=== PATIENT | male | born 1975 | race Caucasian/White ===

== ENCOUNTER 2024-12-07 15:32 | Outpatient (CLI) | payer OTHER, SELFPAY ==
--- NOTE | ~2024-12-07 | CT_ITS ---
Noncontrast CT scan of the right shoulder Clinical history: Pain TECHNIQUE: Axial noncontrast imaging of the right shoulder was performed. Sagittal and coronal reform atted images were constructed. Dose reduction technique was used on this scan by utilizing automated exposure control and iterative reconstruction technique. The dose-length product (DLP) was 410.94 mGy -cm. Findings: No acute fracture or dislocation seen. There is advanced degenerative changes glenohumeral joint, with joint space narrowing and prominent bony productive change of the humerus, with large inf eromedial humeral head osteophyte in particular. There is moderate AC joint degenerative change. No d efinite glenohumeral joint effusion seen. Visualized musculature about the right shoulder is unremarkable. No muscle atrophy evident. No soft t issue mass or fluid collection seen. IMPRESSION: Advanced osteoarthritis of the glenohumeral joint, as detailed above. Moderate AC joint degenerative change. No fracture or dislocation seen. Exam suboptimal due to [id number] on the reconstructed sagittal and coronal images, which incomple tely include the humeral head and glenohumeral joint. Reviewed, dictated and finalized at location . IMPRESSION: Advanced osteoarthritis of the glenohumeral joint, as detailed above. Moderate AC joint degenerative change. No fracture or dislocation seen. Exam suboptimal due to [id number] on the reconstructed sagittal and coronal images, which incompletely include the humeral head and glenohumeral joint.
--- OUTSIDE RECORDS SUMMARY | 2024-12-07 15:38 | XMS_ITS | Clinical Summary ---
Author Organization [facility] Address [address] [place] [address] Care Team Providers Care Abrasive Mixer Name Role Phone Huang Kovacs MD Primary Care Provider Source Comments [facility],non-owned Affiliates and Associated Physician Practices is amultiple site organization consisting of ambulatory clinics and hospital sitesin [place], [place], [place] and [place]. This disclosure is being madepursuant to the Care Everywhere program and may not contain all information available regarding this patient. Last updated 18.[facility] Allergies No known active allergies Immunizations Immunization Administration Dates Next Due TDAP (7yrs+) 01/04/2018 Social History Tobacco Use Types Packs/Day Years Used Date Smoking Tobacco: Never Assessed Sex and Gender Information Value Date Recorded Sex Assigned at Not on file Legal Sex Male 3:02 PM CDT Gender Identity Not on file Sexual Orientation Not on file Plan of Treatment Health Maintenance Due Date Last Done Comments COLOGUARD (AGES 45-75) - COL ON CA SCREENING 1976 COLON MONITORING 1976 COLONOSCOPY - COLON CA SCREENING 1976 CT COLONOGRAPHY - COLON CA SCREENING 1976 Colorectal Cancer Screening 1976 FIT - COLON CA SCREENING 1976 FLEX SIG - COLON CA SCREENING 1976 LIPID TESTING 1976 HIV SCREENING 02/12/1991 HEPATITIS C SCREENING 02/08/1994 HEPATITIS B VACCINE (1 of 3 - 19+ 3-dose series) 02/12/1995 COVID-19 VACCINE (2023-2 5 season) 2024 DEPRESSION SCREENING 07/25/2024 INFLUENZA VACCINE (Season Ended) 2025 ZOSTER VACCINE (1 of 2) 02/12/2026 DTAP/TDAP/TD VACCINES (2 - T d or Tdap) 01/05/2028 01/04/2018 HIB VACCINE Aged Out No longer eligi ble based on patient's age to complete this topic HPV VACCINE Aged Out No longer eligi ble based on patient's age to complete this topic MENINGOCOCCAL (Group B) VACC INE SHARED DECISION-MAKING Aged Out No longer eligibl e based on patient's age to complete this topic MENINGOCOCCAL GROUPS A/C/Y/W VACCINE Aged Out No longer eligible b ased on patient's age to complete this topic PNEUMOCOCCAL VACCINE Aged Out No long er eligible based on patient's age to complete this topic Insurance Care Teams Abrasive Mixer Relationship Specialty Start Date End Date Huang Kovacs MD [address] [place] [id number] PCP - General Family Medicine 01/04/18
== END 2024-12-07 15:33 | disposition home or self-care (01) ==
PROVIDERS: PCP Emergency Medicine; Visit Provider Orthopaedic Surgery
DX: M19.011 Primary osteoarthritis, right shoulder (principal)
CPT/HCPCS: 73200

== ENCOUNTER 2025-07-11 02:29 | Day surgery (SDC) | payer OTHER, SELFPAY ==
[2025-06-25 13:14] VITALS: BMI 31.2
--- OUTSIDE RECORDS SUMMARY | 2025-07-11 02:33 | XMS_ITS | Continuity of Care Document ---
Author Organization [place] [facility], [facility] [place] Address [address] [place] [address] Care Team Providers Care Monotype Keyboard Operator Name Role Phone SHAUNA HERR Primary Care Provider SHAUNA HERR Referring Provider [phone] Assessment Encounter Date Assessment Date Assessment LastModified by Organization Details LastModified Time 05/06/2025 05/06/2025 HPI: 50-year-old male presents today for a preop evaluation for right anatomic total shoulder arthroplasty with . He has a history of shoulder arthritis. Treatment has included anti-inflammator ies, PT, and cortisone injections with minimal relief. 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 He is unable to even throw batting practice. He currently reports pain at 5/10. Medications: Meloxicam and Cetirizine Allergies : NKDA Medical Hx: None Surgical Hx: None Anesthesia Hx: None Tobacco Use: 4-5 Nicotine pouches a day. Stopped end of December. Medical Clearance: None ROS: Per patient questionnaire Physical Exam : General: Normal appearance. No acute distress. Inspection: No evidence of swelling, erythema, bruising or deformity. Palpation: Nontender to palpation ROM: Flexion: 150 Abduction: 50 ER: 30 IR: Back pocket Motor: 5/5 strength. Sensation: Sensation intact. Imaging: , CT reviewed demonstrating arthritis Assessment & Plan: We will proceed with anatomic total shoulder arthroplasty and an arthro surface ovo inlay. Risks included but are not limited to pain, stiffness, infection, injury to other structures including nerves or blood vessels, need for future surgery, and anesthesia complications. The goal of surgery is to improve symptoms but there is no guarantee of any results and it is possible the condition is worse after surgery. Patient agreed and would like to proceed. Surgery is planned for May 14 Discussed nicotine effects on healing. He states that he has discontinued all nicotine end of December Follow Up: 2 weeks postop. [email or web address] Not available 05/06/2025 19:06:31 Plan of Treatment Reminders Order Date Submit Date Provider Last Modified By Organization Details Last Modified Time Details Appointments Any 5 026 03:00PM Aly Jaquez MD Not available Not available Not available Lab None record ed. Referral None record ed. Procedures None record ed. Surgeries None record ed. Imaging None record ed. Medication Orders None record ed. Patient TargetsNo targets recorded. Patient InstructionsNo instructions recorded. Reason for Referral None Reported. Results Created Date Observation Date Name Description Value Unit Range Abnormal Flag Note LastModifiedBy Organization Detail LastModifiedTime 07/10/20 25 XR, shoul gloria, 2 or more view No observ ation record ed. raiza [facility] [place] [address], [place], [address], 07/10/2025 11:03:24 Result Notes None recorded. Problems Name Problem SNOMED Code Status Onset Date Resolution Date Notes Provider Name and Address Organization Details Recorded Time Pain of right shoulder joint 9513479085773 9100 Active 2024 KACIE Villanueva, [facility] 5 15:19:20 Inflammatio n of joint of right shoulder region Active 2024 Zamzam Lyles PA-C [address] [facility] [address], [place], [address] , [facility] 5 15:04:08 Problem Notes None recorded. Procedures Surgical History Date Name Laterality Status Provider Name and Address Organization Details Recorded Time 05/14/2025 Shoulder completed Negrita Blankenship [facility] 05/29/2025 10:04:49 Imaging Results None recorded. Procedure Notes None recorded. Medical Equipment None Reported. Allergies No known drug allergies Medications Name Sig Start Date Stop Date Status Note LastModified by Organization Details LastModified Time cyclobenzapri ne 10 mg tablet TAKE 1 TABLET 3 TIMES A DAY BY ORAL ROUTE NEEDED. active Not Available Not Available N ot Available hydrocodone 5 mg-acetaminop hen 325 mg tablet TAKE 1 TABLET BY MOUTH EVERY 6 HOURS NEEDED active Not Available Not Available No t Available meloxicam 15 mg tablet TAKE 1 TABLET BY MOUTH EVERY DAY active Not Available Not Available No t Available bupivacaine HCl 0.5 % (5 mg/mL) injection solution Take 20 mg by injection route. 2024 active Not Available Not Available Not Avai lable tramadol 50 mg tablet TAKE 1 TABLET BY MOUTH EVERY 6 HOURS NEEDED active Not Available Not Available No t Available Kenalog 10 mg/mL suspension for injection Take 10 mg by injection route. 2024 active [facility]: 0003- 0494- 20 Not Available Not Available Not Available gabapentin 100 mg capsule TAKE 1 CAPSULE BY MOUTH THREE TIMES A DAY NEEDED active Not Available Not Available No t Available Vitals Date Recorded Body height Body mass index (BMI) Body weight Pain severity - 0-10 verbal numeric rating [Score] - Reported Provider Name and Address Organization Details Last Updated DateTime 05/06/2025 190.5 cm 30 kg/m2 241025.17 g 5 KACIE Villanueva - [facility] [employer] [facility] 05/06/2025 15:19:31 Social History Question Answer Notes LastModified by Organizat ion Details LastModified Time What Was The Date Of Your Most Recent Tobacco Screening? 07/10/2025 [email or web address] Information not available 07/10/2025 Sex: Unknown Functional Status None recorded. Mental Status None recorded. Family History Nothing Reported. Medical History No medical history recorded. Past Encounters Encounter ID Performer Location Encounter Start Date Encounter Closed Date Diagnosis/Indication Diagnosis SNOMED-CT Code Diagnosis ICD10 Code Diagnosis IMO Codes Diagnosis Note [id number] Aly Jaquez MD [facility] [address] [place] [address] 05/06/2025 15:16:00 05/06/2025 16:00:01 Pain of right shoulder joint 2290614422 0070365 M25.511 Inflammati on of joint of right shoulder region 7409109856 41970 M19.011 [id number] Health Concerns Section Related Observation LastModified by Organization Detai ls LastModified Time None Recorded Concern Status LastModified by Organization Details LastModified Time None Recorded Payers Encounter Date Sequence Insurance Name Policy Number Policy Edwards Covered Member ID Edwards Member ID Guarantor Name 05/06/2025 1 [facility] [id number] Lenard Chu [id number] Lenard Chu
--- OUTSIDE RECORDS SUMMARY | 2025-07-11 02:33 | XMS_ITS | Continuity of Care Document ---
Author Organization [place] [facility] [employer] [facility], [facility] [place] Address [address] [place] [address] Care Team Providers Care Helper/Driver Name Role Phone SHAUNA HERR Primary Care Provider SHAUNA HERR Referring Provider [phone] Assessment Encounter Date Assessment Date Assessment LastModified by Organization Details LastModified Time 05/29/2025 05/29/2025 50-year-old male presents for follow-up of his right shoulder status post a Arthro surface ovo motion TSA on 05/16/2025. He reports doing well, having no pain. He has been moving the arm according to the exercises on the sheet without any difficulty. He does have some muscle spasm in his biceps. Incision is clean dry intact without any signs of infection. He has no tenderness around the shoulder. He does have some swelling over the elbow and biceps area. He does report some subjective numbness and tingling in the fingers his shoulder appears to be doing well. The swelling is not unexpected and I would expect that to continue to resolve over time. In terms of numbness tingling, some that may be from the swelling, or residual affects from the nerve block. We will keep an eye on that and see how that progresses. We will give him a refill on his pain medications. 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 Follow up in 4 weeks for recheck. We will also put an order for PT at this point. [email or web address] Not available 05/29/2025 10:26:43 Plan of Treatment Reminders Order Date Submit Date Provider Last Modified By Organization Details Last Modified Time Details Appointments Any 5 2025 03:00P M Aly Jaquez MD Not available Not available Not available Lab None recorded. Referral physical therapist referral - Please contact pt to schedule for R shoulder post op, TSA. Dr. Phillips protocol found on [email or web address] 2024 [facility], [address], [place], [address], 06/11/2025 08:27:54 Procedures None recorded. Surgeries None recorded. Imaging None recorded. Medication Orders tramadol 50 mg tablet 2024 [facility][id number], [address] [place], [address], 05/29/2025 10:53:45 hydrocodo ne 5 mg-acetam inophen 325 mg tablet 2024 [id number] [address] [place], [address], 05/29/2025 10:53:45 cyclobenz aprine 10 mg tablet [address]/Pharmacy #[id number], [address] [place], [address], 06/03/2025 14:53:25 Patient TargetsNo targets recorded. Patient InstructionsNo instructions recorded. Reason for Referral Physical Therapist Referral for Pain of right shoulder joint R shoulder/TSA post op Please contact pt to schedule for R shoulder post op, TSA. Dr. Phillips protocol found on [email or web address] Referring Physician: Aly Jaquez, Orthopedic Surgery, Encounter Date: 05/29/2025 Results Created Date Observation Date Name Description Value Unit Range Abnormal Flag Note LastModifiedBy Organization Detail LastModifiedTime 07/10/20 25 XR, shoul gloria, 2 or more view No observ ation record ed. andersonnatali [facility] [place] [address], [place], [address], 07/10/2025 11:03:24 Result Notes None recorded. Problems Name Problem SNOMED Code Status Onset Date Resolution Date Notes Provider Name and Address Organization Details Recorded Time Pain of right shoulder joint 1077929111931 9100 Active 2024 KACIE Villanueva null, [facility] 15:19:20 Inflammatio n of joint of right shoulder region Active 2024 Zamzam Lyles PA-C [address] [facility] [facility] [address], [place], [address], [employer] 15:04:08 Problem Notes None recorded. Procedures Surgical History Date Name Laterality Status Provider Name and Address Organization Details Recorded Time 05/14/2025 Shoulder completed [facility] 05/29/2025 10:04:49 Imaging Results None recorded. Procedure [...] 10 mg by injection route. 2024 active [facility]: 0003- 0494- 20 Not Available Not Available Not Available gabapentin 100 mg capsule TAKE 1 CAPSULE BY MOUTH THREE TIMES A DAY NEEDED active Not Available Not Available No t Available Vitals Date Recorded Body height Body mass index (BMI) Body weight Provider Name and Address Organization Details Last Updated DateTime 05/29/2025 190.5 cm 30 kg/m2 609560.17 g [facility] 05/29/2025 10:03:43 Social History Question Answer Notes LastModified by Organizat ion Details LastModified Time What Was The Date Of Your Most Recent Tobacco Screening? 07/10/2025 [email or web address] Information not available 07/10/2025 Sex: Unknown Functional Status None recorded. Mental Status None recorded. Family History Nothing Reported. Medical History No medical history recorded. Past Encounters Encounter ID Performer Location Encounter Start Date Encounter Closed Date Diagnosis/Indication Diagnosis SNOMED-CT Code Diagnosis ICD10 Code Diagnosis IMO Codes Diagnosis Note [id number] Aly Jaquez MD [facility] [place] [address] [place] [address] 05/06/2025 15:16:00 05/06/2025 16:00:01 Pain of right shoulder joint 5802858007 7993711 M25.511 Inflammati on of joint of right shoulder region 0023843106 09929 M19.011 06546526 [id number] Aly Jaquez MD [facility] [place] [address] [place] [address] 05/29/2025 09:57:26 05/29/2025 10:40:01 Pain of right shoulder joint 5903626774 1578128 M25.511 Inflammati on of joint of right shoulder region 3036175235 48792 M19.011 [id number] Health Concerns Section Related Observation LastModified by Organization Detai ls LastModified Time None Recorded Concern Status LastModified by Organization Details LastModified Time None Recorded Payers Encounter Date Sequence Insurance Name Policy Number Policy Edwards Covered Member ID Edwards Member ID Guarantor Name 05/29/2025 1 [facility] [id number] Lenard Chu [id number] Lenard Chu
--- OUTSIDE RECORDS SUMMARY | 2025-07-11 02:33 | XMS_ITS | Continuity of Care Document ---
Author Organization [place] [facility] [place] Address [address] [place] [address] Care Team Providers Care Salesforce Trainer Name Role Phone SHAUNA HERR Primary Care Provider [phone] SHAUNA HERR Referring Provider [phone] Assessment Encounter Date Assessment Date Assessment LastModified by Organization Details LastModified Time 07/10/2025 07/10/2025 HPI: 50 year old male presents today for postop follow-up after undergoing right arthro surface ovo motion anatomical total shoulder arthroplasty. He is approximately 8 weeks postop. Reports compliance with PT. 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 Currently rates pain 0/10, takes ibuprofen as needed. No concerns today Physical Exam: General: Normal appearance. No acute distress. Inspection: Incisions are well healed Palpation: Nontender with palpitation ROM: Full ROM Sensation: Sensation intact. Imaging: XR reviewed, demonstrating replacement in good position with no periprosthetic lucency or fracturing seen Assessment & Plan: He is doing well 8 weeks postop. Continue to work with PT on ROM and strengthening. Renewed PT Ordered, follow s postop protocol Precautions: Advance to routine ADL's as tolerated, no lifting greater than 2 lbs. Routine dental procedures should be delayed for 3 months unless there is an active infection. Work note provided. Follow Up: 6 weeks All questions were answered. Patient verbalized understanding of treatment plan [email or web address] Not available 07/10/2025 11:34:48 Plan of Treatment Reminders Order Date Submit Date Provider Last Modified By Organization Details Last Modified Time Details Appointments Any 5 2025 03:00P Michael Jaquez MD Not available Not available Not available Lab None recorded. Referral physical therapist referral - continuat ion of therapy for R shoulder for post op TSA 2024 025 [facility], [address], [place], [address], 07/10/2025 14:15:17 Procedures None recorded. Surgeries None recorded. Imaging XR, shoulder, 2 or more view 2024 025 raiza [facility] [place], [address], [place], [address], 07/10/2025 11:03:25 Medication Orders None recorded. Patient TargetsNo targets recorded. Patient InstructionsNo instructions recorded. Reason for Referral Physical Therapist Referral for Pain of right shoulder joint R shoulder continuation of therapy for R shoulder for post op TSA Referring Physician: Zamzam Lyles, Orthopedic Surgery, Encounter Date: 07/10/2025 Results Created Date Observation Date Name Description Value Unit Range Abnormal Flag Note LastModifiedBy Organization Detail LastModifiedTime 07/10/20 25 XR, shoul gloria, 2 or more view No observ ation record ed. [email or web address] [facility] [place] [address], [place], [address], 07/10/2025 11:03:24 Result Notes None recorded. Problems Name Problem SNOMED Code Status Onset Date Resolution Date Notes Provider Name and Address Organization Details Recorded Time Pain of right shoulder joint 0184216892321 9100 Active 2024 KACIE Villanueva, [facility] 5 15:19:20 Inflammatio n of joint of right shoulder region Active 2024 Zamzam Lyles PA-C [address] [place] [address], [facility] [address], [place], [address] , [facility] 5 15:04:08 Problem Notes None recorded. Procedures Surgical History Date Name Laterality Status Provider Name and Address Organization Details Recorded Time 05/14/2025 Shoulder completed Negrita Blankenship [facility] 05/29/2025 10:04:49 Imaging Results None recorded. Procedure [...] 10 mg by injection route. 2024 active [facility]: 0003- 0494- 20 Not Available Not Available Not Available gabapentin 100 mg capsule TAKE 1 CAPSULE BY MOUTH THREE TIMES A DAY NEEDED active Not Available Not Available No t Available Vitals Date Recorded Body height Body mass index (BMI) Body weight Pain severity - 0-10 verbal numeric rating [Score] - Reported Provider Name and Address Organization Details Last Updated DateTime 07/10/2025 190.5 cm 30 kg/m2 338715.17 g 0 KACIE Villanueva [place] [facility] [employer] 07/10/2025 10:30:26 Social History Question Answer Notes LastModified by Organizat ion Details LastModified Time What Was The Date Of Your Most Recent Tobacco Screening? 07/10/2025 Information not available 07/10/2025 Sex: Unknown Functional Status None recorded. Mental Status None recorded. Family History Nothing Reported. Medical History No medical history recorded. Past Encounters Encounter ID Performer Location Encounter Start Date Encounter Closed Date Diagnosis/Indication Diagnosis SNOMED-CT Code Diagnosis ICD10 Code Diagnosis IMO Codes Diagnosis Note [id number] Aly Jaquez MD [facility] [place] [address] [place] [address] 07/10/2025 10:23:11 07/10/2025 10:58:13 Inflammation of joint of right shoulder region 5547258175 27294 M19.011 17534109 Pain of ri ght shoulder joint 1257810862 7993327 M25.511 History of operative procedure on shoulder 322291945 Z96.611 [id number] Health Concerns Section Related Observation LastModified by Organization Detai ls LastModified Time None Recorded Concern Status LastModified by Organization Details LastModified Time None Recorded Payers Encounter Date Sequence Insurance Name Policy Number Policy Edwards Covered Member ID Edwards Member ID Guarantor Name 07/10/2025 1 [facility] [id number] Lenard Chu [id number] Lenard Chu
--- OUTSIDE RECORDS SUMMARY | 2025-07-11 02:33 | XMS_ITS | Clinical Summary ---
Author Organization [facility] Address [address] [place] [address] Care Team Providers Care Textile Converter Name Role Phone Huang Kovacs MD Primary Care Provider [phone] Source Comments [facility],non-owned Affiliates and Associated Physician Practices is amultiple site organization consisting of ambulatory clinics and hospital sitesin [place], [place], [place] and [place]. This disclosure is being madepursuant to the Care Everywhere program and may not contain all information available regarding this patient. Last updated 18.[facility] Allergies No known active allergies Immunizations Immunization [...] of 3 - 19+ 3-dose series) 02/12/1995 DEPRESSION SCREENING 07/25/2024 COVID-19 VACCINE (2024-2 6 season) 2025 INFLUENZA VACCINE (#1) 2025 ZOSTER VACCINE (1 of 2) 02/12/2026 [...] to complete this topic Insurance Care Teams Textile Converter Relationship Specialty Start Date End Date Huang Kovacs MD [address] [address] PCP - General Family Medicine 01/04/18
--- OUTSIDE RECORDS SUMMARY | 2025-07-11 02:33 | XMS_ITS | Data Portability ---
Author Organization [place] - [facility] [employer], Main Office Address [address] [place] [address] Care Team Providers Care Marine Fire Fighter Name Role Phone SHAUNA HERR Primary Care Provider SHAUNA HRER Referring Provider Assessment Encounter Date Assessment Date Assessment LastModified by Organization Details LastModified Time 11/07/2024 11/07/2024 49-year-old male presents for follow-up of his right shoulder. 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 We treated him with a cortisone injection a course of anti-inflammatori es last time, he reports feeling better, with improvement in his pain. He still has limitations with throwing and is unable to even throw batting practice still. He wants to consider surgery later in the summer, around January. He has limited range of motion, 120 of elevation with itching of the scapula, 20 of external rotation, internal rotation back pocket. He has crepitus with range of motion. He has 5/5 rotator cuff strength He has had some improvement with conservative management but is still able to do his work duties and everyday activities. He still wants to proceed with surgery which would be anatomic total shoulder arthroplasty. Given his desire to return to throwing, I would recommend an arthro surface ovo inlay. We will pencil him in for surgery in January and see him back within 30 days of that in December. At that point we would also order a CT scan. He is in agreement with the plan. Not available 11/07/2024 09:54:25 01/09/2025 01/09/2025 HPI: 49-year-old male presents today for a preop evaluation for right anatomic total shoulder arthroplasty with . He has a history of shoulder arthritis. Treatment has included anti-inflammatori es, PT, and cortisone injections with minimal relief. 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 He is unable to even throw batting practice. He currently reports pain at 3/10. Medications: Meloxicam and Cetirizine Allergies: NKDA Medical Hx: None Surgical Hx: None Anesthesia Hx: None Tobacco Use: 4-5 Nicotine pouches a day Medical Clearance: None ROS: Per patient questionnaire Physical Exam: General: Normal appearance. No acute distress. Inspection: No evidence of swelling, erythema, bruising or deformity. Palpation: Nontender to palpation ROM: Flexion: 150 Abduction: 80 ER: 30 IR: Back pocket Motor: 5/5 strength. Sensation: Sensation intact. Imaging: CT reviewed demonstrating arthritis Assessment & Plan: [...] like to proceed. Surgery is planned for TuesdayJanuary 22. Discussed nicotine effects on healing. He states that he has discontinued all nicotine today. Follow Up: 2 weeks postop. All questions were answered. Patient verbalized understanding of treatment plan [email or web address] Not available 01/09/2025 15:05:46 05/06/2025 05/06/2025 HPI: 50-year-old male presents today for a preop evaluation for right anatomic total shoulder arthroplasty with . He has a history of shoulder arthritis. Treatment has included anti-inflammatori es, PT, and cortisone injections with minimal relief. 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 He is [...] weeks postop. 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 Follow up in 4 weeks for recheck. We will also put an order for PT at this point. Not available 05/29/2025 10:26:43 07/10/2025 07/10/2025 HPI: 50 year old male presents today for postop follow-up after undergoing right arthro surface ovo motion anatomical total shoulder arthroplasty. He is approximately 8 weeks postop. Reports compliance with PT. Notes improvement in ROM, surface water technician strength and sensation. Currently rates pain 0/10, [...] shoulder for post op TSA 2024 025 [facility], [address], [address], [place], [address], 07/10/2025 14:15:17 physical therapist referral - Please contact pt to schedule for R shoulder post op, TSA. Dr. Phillips protocol found on [email or web address] Secret 2024 025 [facility], [address], [address], [place], [address], 06/11/2025 08:27:54 Procedures None recorded. Surgeries None recorded. Imaging XR, shoulder, 2 or more view 2024 025 [facility] [place], [address], [place], [address], 07/10/2025 11:03:25 Medication Orders tramadol 50 mg tablet 2024 [facility] #[id number], [address] [place], [address], 05/29/2025 10:53:45 hydrocodo ne 5 mg-acetam inophen 325 mg tablet 2024 025 [facility] #[id number], [address] [place], [address], 05/29/2025 10:53:45 cyclobenz aprine 10 mg tablet [address]/Pharmacy #[id number], [address] [place], [address], 06/03/2025 14:53:25 Patient TargetsNo targets recorded. Patient InstructionsNo instructions recorded. Reason for Referral Physical Therapist Referral for Pain of right shoulder joint R shoulder/TSA post op Please contact pt to schedule for R shoulder post op, TSA. Dr. Phillips protocol found on [email or web address] Referring Physician: Elida Jaquez, Orthopedic Surgery, Encounter Date: 05/29/2025 Physical Therapist Referral for Pain of right shoulder joint R shoulder continuation of therapy for R shoulder for post op TSA Referring Physician: Zamzam Lyles, Orthopedic Surgery, Encounter Date: 07/10/2025 Results Created Date Observation Date Name Description Value Unit Range Abnormal Flag Note LastModifiedBy Organization Detail LastModifiedTime 12/10/19 25 12/07/2024 CT, darryn gloria, w/o contr ast No observ ation record ed. [address], [place], [address], 12/10/2024 08:22:31 07/10/20 25 XR, darryn gloria, 2 or more view No observ ation record ed. raiza [facility] [place] [address], [place], [address], 07/10/2025 11:03:24 Result Notes None recorded. Problems Name Problem SNOMED Code Status Onset Date Resolution Date Notes Provider Name and Address Organization Details Recorded Time Pain of right shoulder joint 1186645545617 9100 Active 2024 KACIE Villanueva [facility], [employer] 5 15:19:20 Inflammatio n of joint of right shoulder region Active 2024 Zamzam Lyles PA-C [address] [facility], [facility] [address], [place], [address], [employer] 15:04:08 Problem Notes None recorded. Procedures Surgical History Date Name Laterality Status Provider Name and Address Organization Details Recorded Time 05/14/2025 Shoulder completed Negrita Blankenship [employer] 05/29/2025 10:04:49 Imaging Results None recorded. Procedure [...] 10 mg by injection route. 2024 active [facility]: 0003- [id number]- 20 Not Available Not Available Not Available gabapentin 100 mg capsule TAKE 1 CAPSULE BY MOUTH THREE TIMES A DAY NEEDED active Not Available Not Available No t Available Vitals Date Recorded Body height Body mass index (BMI) Body weight Pain severity - 0-10 verbal numeric rating [Score] - Reported Provider Name and Address Organization Details Last Updated DateTime 11/07/2024 190.5 cm 30 kg/m2 918960.17 g 4 [facility] 11/07/[facility]24 09:17:16 Date Recorded Body height Body mass index (BMI) Body weight Pain severity - 0-10 verbal numeric rating [Score] - Reported Provider Name and Address Organization Details Last Updated DateTime 01/09/2025 190.5 cm 30 kg/m2 756297.17 g 3 Namrata Slaughter [facility] 01/09/2025 13:49:06 Date Recorded Body height Body mass index (BMI) Body weight Pain severity - 0-10 verbal numeric rating [Score] - Reported Provider Name and Address Organization Details Last Updated DateTime 05/06/2025 190.5 cm 30 kg/m2 007306.17 g 5 Namrata Slaughter [facility] 05/06/2025 15:19:31 Date Recorded Body height Body mass index (BMI) Body weight Provider Name and Address Organization Details Last Updated DateTime 05/29/2025 190.5 cm 30 kg/m2 176284.17 g Negrita Blankenship [facility] [employer] [facility] 05/29/2025 10:03:43 Date Recorded Body height Body mass index (BMI) Body weight Pain severity - 0-10 verbal numeric rating [Score] - Reported Provider Name and Address Organization Details Last Updated DateTime 07/10/2025 190.5 cm 30 kg/m2 546220.17 g 0 Namraat Slaughter [facility] 07/10/2025 10:30:26 Social History Question Answer Notes LastModified by Organizat ion Details LastModified Time What Was The Date Of Your Most Recent Tobacco Screening? 07/10/2025 [email or web address] Information not available 07/10/2025 Sex: Unknown Functional Status None recorded. Mental Status None recorded. Family History Nothing Reported. Medical History No medical history recorded. Past Encounters Encounter ID Performer Location Encounter Start Date Encounter Closed Date Diagnosis/Indication Diagnosis SNOMED-CT Code Diagnosis ICD10 Code Diagnosis IMO Codes Diagnosis Note [id number] Elida Jaquez MD [facility] [place] [address] [place] [address] 08/29/2024 15:27:44 08/29/2024 16:22:57 Pain of right shoulder joint 4189760519 4797436 M25.817 [id number] Elida Jaquez MD [facility] [place] [address] [place] [address] 11/07/2024 09:14:31 11/07/2024 09:34:25 Pain of right shoulder joint 4530934737 0619337 M25.968 [id number] Elida Jaquez MD [facility] [place] [address] [place] [address] 01/09/2025 13:44:25 01/09/2025 14:58:57 Pain of right shoulder joint 7843342293 4716291 M25.511 Inflammati on of joint of right shoulder region 7510483313 93802 M19.011 [id number] Preprocedu ral examination done 6152802056 60590 Z01.818 [id number] Elida Jaquez MD [facility] [place] [address] [place] [address] 05/06/2025 15:16:00 05/06/2025 16:00:01 Pain of right shoulder joint 2034937532 3638058 M25.511 Inflammati on of joint of right shoulder region 5140058915 42396 M19.011 [id number] Elida Jaquez MD [facility] [place] [address] [place] [address] 05/29/2025 09:57:26 05/29/2025 10:40:01 Pain of right shoulder joint 2798888179 8021663 M25.511 Inflammati on of joint of right shoulder region 9516905349 88971 M19.011 [id number] Elida Jaquez MD [facility] [place] [address] [place] [address] 07/10/2025 10:23:11 07/10/2025 10:58:13 Inflammation of joint of right shoulder region 9690237017 77463 M19.011 13521879 Pain of ri ght shoulder joint 8538795814 7028244 M25.511 History of operative procedure on shoulder 650391784 Z96.611 [id number] Health Concerns Section Related Observation LastModified by Organization Mirela ls LastModified Time None Recorded Concern Status LastModified by Organization Details LastModified Time None Recorded Advance Directives Directive None Recorded Payers Insurance Date Sequence Insurance Name Policy Number Policy Edwards Covered Member ID Edwards Member ID Guarantor Name 07/07/2025 1 [facility] [id number] Lenard Chu [id number] Lenard Chu
--- OUTSIDE RECORDS SUMMARY | 2025-07-11 02:34 | XMS_ITS ---
Author Organization Unknown ENCOUNTERS Encounter Performer Location Date Diagnosis Diagnosis Status Outpatient [place] [id number] [place] [address] [id number] Outpatient Aly Jaquez [facility] [address] [place] [address] [id number] MATTHEW *Note: Encounters from your own facility or health system may be excluded. Allergies, Adverse Reactions, Alerts Allergen Type Severity Identification Date Medications Name Date Quantity Days Supplied GPI Number
[2025-07-11 12:41] VITALS: BP 131/88; PULSE 71; RESP 18; TEMP 36.6; O2SAT 98
[2025-07-11] MEDS: LACTATED RINGERS 1,000 ML 150 ML IV CONT (12:54)
--- NOTE | 2025-07-11 12:59 | WPDANESEPPF ---
Anes - Initial Pre Proc Eval Procedure: Operation Date: 07/11/25 13:45 Proposed Procedures p Screening Colonoscopy - Miguel Jurado MD Date/Time: 07/11/25 12:59 Surgeon: Miguel Jurado MD Pre Op Diagnosis: Encounter for screening for malignant neoplasm of Patient Data Age: 50 Gender: M Height: 1.91 m Weight: 109 kg Last Vital Signs Temp 97.8 F 07/11/25 12:41 Pulse 71 07/11/25 12:41 Resp 18 07/11/25 12:41 BP 131/88 07/11/25 12:41 Pulse Ox 98 07/11/25 12:41 O2 Del Method Room Air 07/11/25 12:41 Allergies Allergy/AdvReac Type Severity Reaction Status Date / Time No Known Allergies Allergy Verified 07/11/25 12:40 Home Medications ?Medication ?Instructions ?Recorded ?Confirmed ?Type cetirizine 10 mg capsule (All Day 10 mg PO DAILY PRN allergy symptoms 12/05/24 07/11/25 History Allergy (cetirizine)) tramadol 50 mg tablet 50 mg PO Q12H PRN pain 06/25/25 07/11/25 History Patient hx anesthesia problems: none Family hx anesthesia problems: none Results Review: All pre-operative results and documents have been reviewed as part of the pre-operative evaluation. [facility] Social History Social History Smoking status: Former smoker Tobacco type: smokeless tobacco Smokeless tobacco user: chewing tobacco Alcohol intake: current Drinks per week: 5 Substance use type: does not use Living arrangements: with friend(s) Spiritual care concerns: No Anes - Eval Final PreProcedure Day of Procedure 07/11/25 12:59 Patient weight: normal Lungs: normal air movement Airway: Mallampati scale class II Neurological: alert and oriented Last oral intake: >/= 8 hours ASA classification: II Emergent: no Anesthetic plan: proceed Anesthesia type and monitoring: general GIVS and standard monitoring Results Review: All pre-operative results and documents have been reviewed as part of the pre-operative evaluation. BMI 30, active without cp or sob. Informed Consent: The patient's anesthetic plan and its attendant risks and benefits were discussed with the patient/family/POA. Questions were solicited and answers provided to the satisfaction of the patient/family/POA.
--- NOTE | 2025-07-11 13:29 | PM.IMHP2 ---
H&P: HPI History of Present Illness Date/Time: 07/11/25 13:29 Chief Complaint: Screening colonoscopy Narrative: This is the patient's first colonoscopy. There are no GI symptoms and there is no family history of colorectal cancer. Review of Systems Review of Systems: All systems reviewed & are unremarkable except as noted in HPI and below [facility] Social History Social History Smoking status: Former smoker Tobacco type: smokeless tobacco Smokeless tobacco user: chewing tobacco Alcohol intake: current Drinks per week: 5 Substance use type: does not use Living arrangements: with friend(s) Spiritual care concerns: No Meds Home Medications and Allergies Home Medications ?Medication ?Instructions ?Recorded ?Confirmed ?Type cetirizine 10 mg capsule (All Day 10 mg PO DAILY PRN allergy symptoms 12/05/24 07/11/25 History Allergy (cetirizine)) tramadol 50 mg tablet 50 mg PO Q12H PRN pain 06/25/25 07/11/25 History Allergies Allergy/AdvReac Type Severity Reaction Status Date / Time No Known Allergies Allergy Verified 07/11/25 12:40 Vital Signs Vital Signs - 24 hr 07/11/25 12:41 Temperature 97.8 F Pulse Rate 71 Respiratory Rate 18 Blood Pressure 131/88 Pulse Oximetry 98 Oxygen Delivery Room Air Exam Const: General: cooperative and healthy appearing Resp: Effort & Inspection: normal respiratory effort and able to speak in complete sentences Auscultation: clear to auscultation bilaterally Cardio: Rate: regular rate Rhythm: regular rhythm GI: Inspection: normal to inspection GI Palp: No No hepatosplenomegaly present Auscultation: normal bowel sounds Rectal Exam: deferred Skin: General skin exam: normal color Psych: Appearance: grossly normal Mental Status: mental status grossly normal Assessment and Plan Assessment and plan (1) Encounter for screening colonoscopy: Code(s): Z12.11 - Encounter for screening for malignant neoplasm of colon Status: Acute Assessment and Plan: The patient is deemed a good candidate for the procedure. Consent signed. Will proceed. Prior Studies I have reviewed the following patient records and this information was taken into consideration when formulating the assessment and plan.: previous labs, previous ER visits, previous hospitalizations and previous clinic visits
[2025-07-11] MEDS: SIMETHICONE ORAL SUSPENSION 20 MG/0.3 ML 30 ML BOTTLE 0.6 ML IRRIGATION (13:42)
--- NOTE | 2025-07-11 13:50 | S_PTH ---
PATIENT: Lenard Chu LOC: [facility] U#:[id number] AGE/SX: 50/M ROOM: RE07/11/[address]: Miguel Jurado MD : 1975 BED: DIS: 07/11/2025 SPEC #: [id number] RECD: 07/11/25 14:27 STATUS: CARA REQ #: [id number] ANYI: 07/11/25 13:[address]: Miguel Jurado DEPT: [facility] Surgical RECD BY: Judy Aquino ENTERED: 07/11/25 14:28 SP TYPE: Surgical OTHR DR: Jeff Ballesteros MD Tissues: A - Colon Polypectomy Procedures: Hematoxylin and Eosin Stain Gross and Microscopic Level 4
[2025-07-11 13:51] VITALS: BP 118/67; PULSE 68; RESP 18; O2SAT 96
[2025-07-11 14:01] VITALS: BP 121/81; PULSE 74; RESP 18; O2SAT 97
[2025-07-11 14:11] VITALS: BP 125/83; PULSE 65; RESP 20; O2SAT 96
== END 2025-07-11 14:16 | disposition home or self-care (01) ==
PROVIDERS: PCP Emergency Medicine; Visit Provider Internal Medicine Gastroenterology
PROC: 0DJD8ZZ Inspection of Lower Intestinal Tract, Via Natural or Artificial Opening Endoscopic (ICD-10-PCS; CPT 45378; principal; 2025-07-11 13:45)
DX: Z12.11 Encounter for screening for malignant neoplasm of colon (principal); D12.5 Benign neoplasm of sigmoid colon; F17.220 Nicotine dependence, chewing tobacco, uncomplicated; Z79.891 Long term (current) use of opiate analgesic
CPT/HCPCS: 45385; 88305; J2704; J7120